=== PATIENT | male | born 1960 | race American Indian/Alaskan Native ===

== ENCOUNTER 2017-08-13 07:15 | Day surgery (SDC) | payer OTHER ==
[2017-08-13 08:00] LABS: Basophils # (Auto) 0.1 K/mm3 (0.0-0.1); Basophils % (Auto) 2.5 % (0.0-1.8); Eosinophils # (Auto) 0.3 K/mm3 (0.0-0.4); Eosinophils % (Auto) 5.7 % (0.0-4.3); Hematocrit 43.3 % (35.5-45.6); Hemoglobin 14.6 gm/dl (11.8-15.2); Lymphocytes # (Auto) 1.8 K/mm3 (1.2-5.4); Lymphocytes % (Auto) 36.3 % (13.4-35.0); Mean Corpuscular HGB Conc 34 % (32-34); Mean Corpuscular Hemoglobin 30 pg (28-32); Mean Corpuscular Volume 89 fl (84-94); Monocytes # (Auto) 0.4 K/mm3 (0.0-0.8); Monocytes % (Auto) 8.7 % (0.0-7.3); Platelet Count 271 K/mm3 (140-440); Red Blood Count 4.87 M/mm3 (3.65-5.03); Red Cell Distribution Width 13.2 % (13.2-15.2)
[2017-08-13] MEDS ORDERED: NACL 0.9% 500 ML 500 ML IV SCH (08:00)
[2017-08-13 08:10] LABS: INR 0.87 (0.87-1.13)
[2017-08-13 08:17] LABS: BUN/Creatinine Ratio 15; Blood Urea Nitrogen 15 mg/dL (9-20); Calcium 9.1 mg/dL (8.4-10.2); Hemolysis Index 45
[2017-08-13] MEDS ORDERED: HEPARIN 10,000 UNITS/10 ML ONE (09:07)
[2017-08-13] MEDS ORDERED: HEPARIN/NS 5000 UNIT/500ML(CATH LAB) 1,000 ML IR ONE (09:07)
[2017-08-13] MEDS ORDERED: CALAN ONE (09:08)
[2017-08-13] MEDS ORDERED: NITROGLYCERIN SYRINGE 3 ML ONE (09:09)
[2017-08-13] MEDS: XYLOCAINE 2% INFILTRATI ONE ×2 (09:48→09:55)
[2017-08-13] MEDS: VERSED ONE ×2 (09:49→09:54)
[2017-08-13] MEDS: SUBLIMAZE ONE ×2 (09:49→09:54)
--- NOTE | 2017-08-13 11:09 | Short Stay Summary ---
Short Stay Documentation Date of service: 08/13/17 - History H&P: obtained from office - Allergies and Medications Current Medications: Allergies No Known Allergies Allergy (Verified 07/06/13 07:45) Home Medications Medication Instructions Recorded Confirmed Last Taken Type Aspirin [Aspirin BABY CHEW TAB] 81 mg PO DAILY 07/06/13 08/13/17 08/13/17 08:15 History Atorvastatin (Nf) [Lipitor] 20 mg PO QHS 07/06/13 08/13/17 08/12/17 History Carvedilol [Coreg] 25 mg PO BID 07/06/13 08/13/17 08/13/17 08:15 History amLODIPine [Norvasc] 10 mg PO DAILY 07/06/13 08/13/17 08/12/17 History metFORMIN [Glucophage] 500 mg PO BID 10/21/15 08/13/17 08/12/17 19:00 History Lisinopril [Zestril TAB] 40 mg PO QDAY #30 tablet 10/25/15 08/13/17 08/12/17 08: 15 Rx Furosemide [Lasix TAB] 80 mg PO QDAY 08/13/17 08/13/17 08/12/17 History Potassium Chloride [K-Dur] 20 meq PO QDAY 08/13/17 08/13/17 08/12/17 History hydrALAZINE [Apresoline TAB] 50 mg PO QDAY 08/13/17 08/13/17 08/12/17 History Active Medications Sodium Chloride (Nacl 0.9% 500 Ml) 500 mls @ 50 mls/hr IV DIRECT ALFA Stop: 08/13/17 17:59 Last Admin: 08/13/17 08:00 Dose: 50 mls/hr - Physical exam General appearance: no acute distress Integumentary: no rash HEENT: Atraumatic Lungs: Clear to auscultation Breasts: deferred Heart: Regular rate Gastrointestinal: normal Male Genitourinary: deferred Female Genitourinary: deferred Rectal Exam: deferred Extremities: no ischemia Neurological: Normal gait - Brief post op/procedure progress note Date of procedure: 08/13/17 Pre-op diagnosis: Shortness of breath Post-op diagnosis: same Procedure: [facility] Anesthesia: MAC Findings: See report Surgeon: NICHOLAS BRAVO Estimated blood loss: none Pathology: none Condition: stable - Hospital course Hospital course: Uneventful - Disposition Condition at discharge: Good Disposition: DC-01 TO HOME OR SELFCARE Short Stay Discharge Plan Activity: advance as tolerated Weight Bearing Status: Weight Bear as Tolerated Diet: low cholesterol, low salt, diabetic Wound: keep clean and dry Special Instructions: hold Metformin (for 48 hours) Follow up with: PRIMARY CARE, [Primary Care Provider] - 7 Days
[2017-08-13 12:36] VITALS: BP 135/76
--- NOTE | 2017-08-14 19:49 | Cardiac Catherization Report ---
ORDERING PHYSICIAN: Wilfredo Zarate MD INDICATION FOR PROCEDURE: Shortness of breath, abnormal myocardial perfusion scan. PROCEDURE PERFORMED: 1. Left and right coronary angiography: 2. Left ventriculogram was not performed. DESCRIPTION OF PROCEDURE: After obtaining the consent, the patient was draped using sterile technique. A 2% lidocaine was injected into the right wrist. A 6-[place] vascular sheath was inserted into the right radial artery. A 6-[place] JL3.5 catheter was used to selectively engage left coronary artery. A 6-[place] AR mode catheter was used to selectively engage the right coronary artery. No complications occurred during the procedure. Hemostasis was achieved at the end of the procedure using manual pressure. SPECIMEN REMOVED: None. ESTIMATED BLOOD LOSS: Minimal. FINDINGS: HEMODYNAMICS: Aortic pressure is 121/85. CARDIAC STRUCTURES: Left ventriculogram was not performed. CORONARY ANATOMY: 1. This is a right dominant circulation. 2. The left main has mild luminal irregularities. 3. Left anterior descending artery has evidence of a 50% tubular stenosis involving the mid segment, otherwise mild luminal irregularities. 4. The left circumflex artery has mild luminal irregularities. 5. 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 The right coronary artery has a slit-like appearance involving the ostium and the proximal pattern. A significant stenosis in this segment cannot be excluded. An interarterial course also cannot be excluded. IMPRESSION: 1. 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 2. 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 There appears to be significant stenosis of the ostial and the proximal right coronary artery with a slit-like appearance. RECOMMENDATIONS: The patient will be recommended for a coronary CTA in order to further evaluate the course of the right coronary artery. JOB# [id number] UTE/PAT
== END 2017-08-13 13:05 | disposition home or self-care (01) ==
LOC: CATHLABREC 07:15
PROVIDERS: ATTEND Internal Medicine
DX: I25.10 Atherosclerotic heart disease of native coronary artery without angina pectoris (principal); E78.5 Hyperlipidemia, unspecified; E11.9 Type 2 diabetes mellitus without complications; I11.0 Hypertensive heart disease with heart failure; I50.9 Heart failure, unspecified; Z98.890 Other specified postprocedural states; Z79.899 Other long term (current) drug therapy; Z79.82 Long term (current) use of aspirin; Z79.84 Long term (current) use of oral hypoglycemic drugs
CPT/HCPCS: 36415; 80048; 85025; 85610; 85730; 93005; 93010; 93458; 99152; 99153; C1894; J1644; J2250; J3010; J7040; Q9967